=== PATIENT | male | born 1960 | race Caucasian/White ===

== ENCOUNTER 2020-12-25 08:23 | Emergency (ER) | payer OTHER ==
[~2020-12-25] VITALS: Ht 193 cm; Wt 102.1 kg
[2020-12-25 08:53] VITALS: BP 184/89
[2020-12-25] MEDS ORDERED: KETOROLAC TROMETH 60MG/2ML VIAL IM ONE (09:15)
[2020-12-25] MEDS ORDERED: HYDROcodone-ACET 10/325MG TAB PO ONE (10:00)
== END 2020-12-25 11:09 | disposition home or self-care (01) ==
LOC: ER 08:23
DX: M48.061 Spinal stenosis, lumbar region without neurogenic claudication (principal); M54.16 Radiculopathy, lumbar region; R07.89 Other chest pain
CPT/HCPCS: 72131; 93005; 96372; 99284; J1885